=== PATIENT | female | born 1985 | race Asian ===

== ENCOUNTER 2018-05-17 22:26 | Inpatient (IN) | payer OTHER ==
[~2018-05-17] VITALS: Ht 162.6 cm; Wt 68.0 kg
[2018-05-17] MEDS ORDERED: LR(*) 1000 ML BAG 1,000 ML IV PRN (22:28)
[2018-05-17] MEDS ORDERED: FAMOTIDINE(*) 20MG/50ML PREMIX 50 ML IVPB PRN (23:18)
[2018-05-17] MEDS ORDERED: DLR(*) 1000 ML BAG 1,000 ML IV PRN (23:18)
[2018-05-17] MEDS ORDERED: OXYTOCIN 30 UNIT/D5LR 500 ML 500 ML IV PRN (23:18)
[2018-05-17] MEDS ORDERED: LIDOCAINE 1% LOCAL 300 MG/30ML INJ PRN (23:20)
[2018-05-17] MEDS ORDERED: FLUSH 10 ML SYR IVP PRN (23:20)
[2018-05-17] MEDS ORDERED: fentaNYL CITR 100 MCG/2 ML AMP IVP PRN (23:20)
[2018-05-17] MEDS ORDERED: METOCLOPRAMIDE 10 MG/2 ML SDV IVP PRN (23:20)
[2018-05-17] MEDS ORDERED: cefOXitin/DEX(*) 2GM/50ML PREM 50 ML IVPB PRN (23:20)
[2018-05-17 23:53] LABS: PLATELET COUNT, AUTOMATED 180 K/uL (150-450)
[2018-05-18] MEDS ORDERED: FENTANYL/ROPIVACAINE 100 ML BAG EPI PRN (00:15)
[2018-05-18] MEDS ORDERED: BUPIVACAINE 0.25% MPF INJ EPI PRN (00:15)
[2018-05-18] MEDS ORDERED: EPIDURAL KEYS XX PRN (00:15)
[2018-05-18] MEDS ORDERED: LIDO/EPI 2% MPF 1:200,000 20ML EPI PRN (00:15)
[2018-05-18] MEDS ORDERED: BUPIVACAINE 0.5% INJ 30ML VIAL EPI PRN (00:15)
[2018-05-18] MEDS ORDERED: fentaNYL CITR 100 MCG/2 ML AMP IT PRN (00:15)
[2018-05-18] MEDS ORDERED: LIDOCAINE/PF 2% 200MG/10ML AMP 200 MG/10 ML AMPUL EPI PRN (00:15)
[2018-05-18] MEDS ORDERED: PNV1COMB5 (00:16)
[2018-05-18] MEDS ORDERED: CALC-515 PO (00:17)
[2018-05-18] MEDS ORDERED: CHOL10005 PO (00:17)
[2018-05-18] MEDS: LR(*) 1000 ML BAG 1,000 ML IV PRN ×4 (02:45→08:34)
[2018-05-18] MEDS ORDERED: ONDANSETRON 4 MG/2 ML VIAL ONE (03:23)
[2018-05-18] MEDS ORDERED: OXYTOCIN 30 UNIT/D5LR 500 ML 500 ML IV PRN (05:03)
[2018-05-18] MEDS ORDERED: TERBUTALINE SULF 1 MG/ML VIAL SUBQ PRN (05:05)
[2018-05-18] MEDS ORDERED: GLYCERIN/WITCH HAZEL LEAF 1 PK TP PRN (10:15)
[2018-05-18] MEDS ORDERED: BENZOCAINE 20% 60 ML BTL TP PRN (10:15)
[2018-05-18] MEDS ORDERED: HYDROCORTISONE 2.5% CR 30GM TB PR PRN (10:15)
[2018-05-18] MEDS ORDERED: LANOLIN OINT 7 GM TUBE TP PRN (10:15)
[2018-05-18] MEDS ORDERED: APAP/HYDROCODONE 325/5 TAB PO PRN (10:15)
[2018-05-18] MEDS ORDERED: ACETAMINOPHEN 325 MG TAB PO PRN (10:15)
[2018-05-18] MEDS ORDERED: MAGNESIUM HYDROXIDE* 30ML UDCP PO PRN (10:15)
--- NOTE | 2018-05-18 10:23 | OB Delivery Note ---
Delivery Note Vaginal Delivery Type: Spont. Vaginal Delivery Delivery Date: May 18, 2018 Delivery Time: 09:55 Estimated Gestational Age(wks): 39.4 Delivery Anesthesia: Epidural Sex: Female Infant Weight (gms): 2830 Apgars: 1 Minute (8), 5 Minute (9) Repair Needed: Laceration, 1st Degree Estimated Blood Loss: 100 Notes: Presented at 2300 with labor symptoms. Progressed to 4 cm on own and epidural placed at 0245. Contractions spaced out. At 0441 Pitocin initiated to augment labor. Complete at 0842 and began pushing with membranes intact. AROM performed at the perineum and delivery occurred immediately after in HIEN pos ition over first degree laceration. Shoulders delivered spontaneous and remainder of baby delivered without issue. Placenta delivered intact and easily. Vagina repaired with 2-0 Chromic without difficulty and great result. Customer Care Assistant in Attendence: No Copies to: ESTER QURESHI MD ; ESTER QURESHI MD May 18, 2018 10:23
--- NOTE | 2018-05-18 10:41 | Anesthesia OB Pre-Anes Eval ---
History of Present Illness Anesthesia Start Date: May 18, 2018 Anesthesia Start Time: 02:00 OB Anesthesia Diagnosis: spontaneous labor, spontaneous ROM EDC: May 18, 2018 : 1 Para: 0 Pain Ratin Heart Tones: 140's Result Diagram: 05/17/18 2344 Past Medical History Medical History: no pertinent history Surgical History: no surgical history Attended Childbirth Classes?: No Hx Anesthesia Reactions: No Hx Family Anesthesia Reaction: No Home Meds Reported Medications Cholecalciferol (Vitamin D3) (VITAMIN D3) 1,000 Unit Tablet, 1000 UNIT PO, TAB 05/18/18 Calcium Carbonate (TUMS) 200 Mg Tab.chew, 200 MG PO, TAB.CHEW 05/18/18 Pnv #116/Iron Fumarate/Fa/Dha (EXPECTA COMBO PACK) 1 Each Combo..pkg 05/18/18 Allergies: Coded Allergies: No Known Drug Allergies (Unverified , 05/17/18) Anesthesia OB ROS Airway Class: l GI ROS: clear liquids, ice chips Last Solids Date: May 17, 2018 Last Solids Time: 13:00 ASA Classification: 2 Assessment and Plan Anesthesia Plan: LEB Anesthesia Stop Day: May 18, 2018 Anesthesia Stop Time: 10:30 Epidural Catheter Removal: Removed by: (Epicath. will be removed later by RN at more convenient time.) ANGEL HOPE CRNA May 18, 2018 03:36
--- NOTE | 2018-05-18 10:43 | Procedure Note ---
Anesthetic Placement Note Anesthesia Plan: LEB Permit for Anesthesia Signed: Yes Anesthesia Technique: Patient Sitting Anesthesia Prep: Betadine Interspace: L 4-5 Local Anesthetic: 1% Lidocaine, 25 Gauge Needle Amount Local - cc's: 4 Anesthesia Needle: 17g Touhy/Schliff Anesthesia Attempts: 3 Loss of Resistance: Normal Saline Depth of DIEUDONNE (cm): 7 Catheter Insertion (cm): 6 Catheter Type: Lutz - Spring Wound Epidural Dressing: Tegaderm, Tape, Adhesive [place] Anesthesia Tray: Lot Number ([id number]), Expiration Date (2019-05-19), Reference Number ([id number]) Comment: First attempt with pt. lateral at L3-4. Sterile gloves/prep. Unsuccessful due to unable to achieve proper positioning secondary to language barrier. Pt. repositioned sitting, unsuccessful L3-4. Positive DIEUDONNE at L4-5 at 7cm, epidural catheter threaded easily 6cm, no heme, paresthesia, negative aspiration. Sterile dressing after test dose. 1030 Infusion discontinued following uneventful vaginal delivery, epicath to be removed later by one of the RNs when it is more convenient. Anesthesia Medications: Epidural Test Dose: 1.5 Lido/Epi (1:200,000), Dose - mL (3), Time (0232), Negative (No symptoms IT or IV injection.) Epidural Loading Dose: 0.2% Ropivicaine, With Fentanyl 2mcg/ml, Dose - ml (15 ml in 5ml increments), Time (0239) Epidural Infusion: 0.2% Ropivicaine, With Fentanyl 2mcg/ml, Start Time: (0250) Epidural Pump Setting: Bolus Dose - mL (4), Lockout - Minutes (15), Maintenance Rate - mL/hr (10), Maximum per Hour - mL (26) Complications: None (Reports good analgesia, minimal motor block, R=L.) ANGEL HOPE CRNA May 18, 2018 03:45
--- NOTE | 2018-05-18 10:49 | History & Physical ---
History of Present Illness Age of Patient: 32 : 1 Para or TPAL: 0 EDC per LMP: May 20, 2018 Estimated Gestational Age: 39.4 Chief Complaint labor History of Present Illness Presented in labor. Pt started care in [place], transferred to [place] and then transferred here for her 's [employer] position. Her care here has been received in [place] and now they are here for delivery. Reports she has hepatitis B and records show chronic inactive carrier of hepatitis B with positive surface and core antigen, normal LFTs and no viral load. Pediatrics have been notified. She is B pos, rubella immune, ABS negative, VDRL NR, HIV negative, normal 1hr GTT, GBS negative. Transfer records reviewed. History Patient's Blood Type: B Positive Rubella Status: Immune Group B Strep Screen: Negative Past Medical History: hepatitis B chronic inactive carrier Allergies: Coded Allergies: No Known Drug Allergies (Unverified , 05/17/18) Med Rec Home Meds Reported Medications Cholecalciferol (Vitamin D3) (VITAMIN D3) 1,000 Unit Tablet, 1000 UNIT PO, TAB 05/18/18 Calcium Carbonate (TUMS) 200 Mg Tab.chew, 200 MG PO, TAB.CHEW 05/18/18 Pnv #116/Iron Fumarate/Fa/Dha (EXPECTA COMBO PACK) 1 Each Combo..pkg 05/18/18 Review of Systems All Systems Reviewed/Normal: Yes, Except as Noted Exam General Exam General Apperance: Alert/Awake/No Acute Distress Neuro: No Gross deficits Eyes: Normal Extraocular Movement & Vison ENT: Normal Cardiovascular: Regular Rate and Rhythm Respiratory: No Respiratory Distress Abdomen: Soft, Non-Tender, Non-Distended Extremities: No Cyanosis,Clubbing or Edema Integumentary: Skin Intact without Lesions or Rash Psychological: Alert & Oriented X3 Fetus FHT Accelerations: 15X15 FHT Category: I Medical Decision Making Data Points Result Diagram: 05/17/18 7833 VTE Prophylasis: Adult Deep Vein Thrombosis/Pulmonary: No Pharmacological Contraindicati: Pt at Low Risk for VTE Mechanical Contraindications: Pt at Low Risk for VTE 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 ESTER QURESHI MD May 18, 2018 10:49
[2018-05-18] MEDS: IBUPROFEN 800 MG TAB PO SCH ×2 (13:27→22:51)
[2018-05-18 14:15] VITALS: BP 121/76; Ht 162.6 cm; Wt 68.0 kg
[2018-05-18 15:30] VITALS: BP 109/53
[2018-05-18 19:45] VITALS: BP 115/66
[2018-05-18] MEDS: DOCUSATE CALCIUM 240 MG CAP PO SCH (21:06)
[2018-05-18 23:00] VITALS: BP 111/58
[2018-05-19 02:00] VITALS: BP 106/64
[2018-05-19] MEDS: IBUPROFEN 800 MG TAB PO SCH ×3 (05:50→21:32)
[2018-05-19 07:05] VITALS: BP 116/57
--- NOTE | 2018-05-19 07:18 | OB/GYN Progress Note ---
OB Subjective Progress Notes Subjective Doing well. Pain controlled and bleeding light. GI: NEG Nausea : Voiding Well Pain: Mild OB Objective Physical Exam Vital Signs Date Time Temp Pulse Resp B/P (MAP) Pulse Ox O2 Delivery O2 Flow Rate FiO2 05/19/18 02:00 98.0 74 18 106/64 (78) 96 05/18/18 14:15 Room Air Intake and Output 05/19/18 06:59 Intake Total 2200 ml Output Total 2100 ml Balance 100 ml Intake IV Total 2200 ml Output Urine Total 2100 ml # Voids 3 General Appearance: Alert/Awake/No Acute Distress Neurological: No Gross deficits Eyes: Normal Extraocular Movement & Vison Cardiovascular: Normal Rhythm & Peripheral Pulses, Regular Rate and Rhythm Respiratory: No Respiratory Distress, Clear to Auscultation Abdomen: Soft, Non-Tender, Non-Distended, Fundus Firm, Non-Tender Extremities: No Cyanosis,Clubbing or Edema Integumentary: Skin Intact without Lesions or Rash Psychological: Alert & Oriented X3 Result Diagram: 05/19/18 0612 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
[2018-05-19] MEDS ORDERED: IBUP800T37 PO (07:19)
--- NOTE | 2018-05-19 07:20 | OB/GYN Discharge Summary ---
Discharge Summary Reason for Hosp/Final Diag: (1) 39 weeks gestation of (2) Chronic hepatitis B affecting antepartum care of mother in third trimester Lates Vital Signs Vital Signs Date Time Temp Pulse Resp B/P (MAP) Pulse Ox O2 Delivery O2 Flow Rate FiO2 05/19/18 02:00 98.0 74 18 106/64 (78) 96 05/18/18 14:15 Room Air Weight (Pounds): 150 Result Diagram: 05/19/18 0612 Condition: Improved Discharge: Home, Self Prison Meds Reported Medications Cholecalciferol (Vitamin D3) (VITAMIN D3) 1,000 Unit Tablet, 1000 UNIT PO, TAB 05/18/18 Calcium Carbonate (TUMS) 200 Mg Tab.chew, 200 MG PO, TAB.CHEW 05/18/18 Pnv #116/Iron Fumarate/Fa/Dha (EXPECTA COMBO PACK) 1 Each Combo..pkg 05/18/18 Follow up Referrals: CUT PRESSMAN - In 6 Weeks @ [facility] with ESTER MILLER MD Follow up with: Dr. Miller [phone] Follow up in: 6 wks PP or PO Discharge Diet: As Tolerates Discharge Activity: As Tolerates, No Heavy Lifting x 6 wks, No Heavy Lifting > 10lb, Pelvic Rest Copies to: ESTER MILLER MD ; ESTER MILLER MD May 19, 2018 07:20
[2018-05-19] MEDS ORDERED: DIPHTH/TETANUS/ACEL. PERTUSSIS IM ONLY ONE (09:00)
[2018-05-19] MEDS ORDERED: INFLUENZA VIRUS VAC 0.5ML SYR IM ONLY ONE (09:00)
[2018-05-19] MEDS ORDERED: MEASLES,MUMP,RUBELLA VAC 0.5ML SUBQ ONE (09:00)
[2018-05-19] MEDS: DOCUSATE CALCIUM 240 MG CAP PO SCH ×2 (09:30→21:32)
--- NOTE | 2018-05-19 13:54 | Anesthesia Post Eval Note ---
Anesthesia Post Eval Note Stabil, afebrile. Pt able to participate in Eval: Yes Cardiovascular Status: Satisfactory Respiratory Status: Satisfactory Pain Managment: Satisfactory PO Nausea/Vomiting: Satisfactory Temperature Management: Satisfactory Mental Status: Satisfactory, Alert, Oriented X3 Post-Op Hydration Status: Satisfactory, Tolerating PO Well, Voiding w/o Difficulty Anesthesia Type: LEB Anesthesia Tolerance: Ambulatory without symptoms PDPH, no apparent complications. ANGEL HOPE LICENSED DIRECT ENTRY MIDWIFE May 19, 2018 13:54
[2018-05-19 20:00] VITALS: BP 108/55
[2018-05-19 22:45] VITALS: BP 105/54
[2018-05-20 03:30] VITALS: BP 111/64
[2018-05-20] MEDS: IBUPROFEN 800 MG TAB PO SCH ×2 (06:08→16:00)
[2018-05-20 07:35] VITALS: BP 121/57
--- NOTE | 2018-05-20 07:44 | OB/GYN Progress Note ---
OB Subjective Progress Notes Subjective Feeling well. Contractions still and normal lochia. Ambulating and voiding well. GI: NEG Nausea : Voiding Well Pain: Mild OB Objective Physical Exam Vital Signs Date Time Temp Pulse Resp B/P (MAP) Pulse Ox O2 Delivery O2 Flow Rate FiO2 05/20/18 03:30 97.3 80 16 111/64 (80) 96 Room Air Intake and Output 05/20/18 07:00 Intake Total 236 ml Balance 236 ml Intake Oral 236 ml General Appearance: Alert/Awake/No Acute Distress Neurological: No Gross deficits Eyes: Normal Extraocular Movement & Vison Cardiovascular: Normal Rhythm & Peripheral Pulses, Regular Rate and Rhythm Respiratory: No Respiratory Distress, Clear to Auscultation Abdomen: Soft, Non-Tender, Non-Distended, Fundus Firm, Non-Tender Extremities: No Cyanosis,Clubbing or Edema Integumentary: Skin Intact without Lesions or Rash Psychological: Alert & Oriented X3, Appropriate Mood & Affect Result Diagram: 05/19/18 0612 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
[2018-05-20] MEDS: DOCUSATE CALCIUM 240 MG CAP PO SCH (09:00)
[2018-05-20] MEDS ORDERED: INFLUENZA VIRUS VAC 0.5ML SYR IM ONLY ONE (11:25)
[2018-05-20 13:30] VITALS: BP 109/59
[2018-05-20 14:06] VITALS: BP 121/57
== END 2018-05-20 17:22 | disposition home or self-care (01) | DRG 806 ==
LOC: OB 22:26
PROVIDERS: ADMIT Obstetrics & Gynecology; ATTEND Obstetrics & Gynecology
PROC: 10E0XZZ Delivery of Products of Conception, External Approach (ICD-10-PCS; principal; 2018-05-18)
PROC: 0HQ9XZZ Repair Perineum Skin, External Approach (ICD-10-PCS; 2018-05-18)
PROC: 10907ZC Drainage of Amniotic Fluid, Therapeutic from Products of Conception, Via Natural or Artificial Opening (ICD-10-PCS; 2018-05-18)
DX: O98.42 Viral hepatitis complicating childbirth (principal); B18.1 Chronic viral hepatitis B without delta-agent; Z37.0 Single live birth; O70.0 First degree perineal laceration during delivery; Z3A.39 39 weeks gestation of pregnancy; Z23 Encounter for immunization
CPT/HCPCS: 36415; 85025; 85027; 86592; 86703; 86762; 86850; 86900; 86901; 87340; 87341; 90471; 90674; J2405; J2590; J7120